=== PATIENT | female | born 1985 | race Caucasian/White ===

== ENCOUNTER 2021-02-04 19:21 | Emergency (ER) | payer OTHER ==
[~2021-02-04] VITALS: Ht 154.9 cm; Wt 72.6 kg
[~2021-02-04 19:21] MED LIST: FLONASE 0.05%50 MCG NASAL; LOESTRIN1 EAC1 PO; PHENERGAN 25 MG25 M1 PO; ZOFRAN ODT4 MG PO
[2021-02-04] MEDS ORDERED: PROBIOTIC1 EAC7 PO (21:15)
[2021-02-04 21:33] LABS: URINE BILIRUBIN NEGATIVE (Negative); URINE BLOOD TRACE (Negative); URINE CLARITY CLEAR; URINE COLOR YELLOW; URINE GLUCOSE-RANDOM* NEGATIVE (Negative); URINE KETONES NEGATIVE (Negative); URINE LEUKOCYTES-REFLEX NEGATIVE (Negative); URINE NITRITE-REFLEX NEGATIVE (Negative); URINE PROTEIN (DIPSTICK) NEGATIVE (Negative); URINE SPECIFIC GRAVITY >= 1.030 (1.005-1.035); URINE UROBILINOGEN 0.2 E.U./dl (0.2-1.0)
[2021-02-04 21:42] LABS: BASOPHILS 0.2 % (0.0-2.0); HEMATOCRIT 37.1 % (37.0-47.0); LYMPHOCYTES 6.7 % (24.0-44.0); MCH 31.8 pg (26.0-34.0); MCV 90.8 fL (80.0-100.0); MONOCYTES 5.3 % (1.0-8.0); PLATELET COUNT 246 thou/uL (150-400); POLYS 86.8 % (36.0-66.0); RBC 4.09 mil/uL (4.20-5.00); RDW 12.5 % (10.5-14.5); WBC 10.4 thou/uL (4.0-11.0)
[2021-02-04 21:51] LABS: CALCIUM 8.9 mg/dL (8.5-10.1); CREATININE 0.9 mg/dL (0.6-1.0); POTASSIUM 4.3 mmol/L (3.5-5.1)
[2021-02-04 21:57] LABS: ALBUMIN 4.4 g/dL (3.4-5.0); TOTAL BILIRUBIN 0.6 mg/dL (0.2-1.0); TOTAL PROTEIN 7.4 g/dL (6.4-8.2)
[2021-02-04] MEDS ORDERED: CARAFATE 1 GM TA1 G1 PO (22:33)
[2021-02-04] MEDS ORDERED: ONDANSETRON HCL4 M2 PO (22:33)
[2021-02-04] MEDS ORDERED: BENTYL 10 MG CA10 M1 PO (22:33)
[2021-02-04 23:23] VITALS: BP 135/86
== END 2021-02-04 23:23 | disposition home or self-care (01) ==
LOC: ER 19:21
PROVIDERS: Nurse Practitioner
DX: N83.201 Unspecified ovarian cyst, right side (principal); R11.2 Nausea with vomiting, unspecified; R19.7 Diarrhea, unspecified; Z90.89 Acquired absence of other organs; Z79.899 Other long term (current) drug therapy; Z88.1 Allergy status to other antibiotic agents